=== PATIENT | female | born 1975 | race African-American/Black ===

== ENCOUNTER 2019-05-09 15:15 | Emergency (ER) | payer OTHER ==
[~2019-05-09] VITALS: Ht 175.3 cm; Wt 93.0 kg
[2019-05-09 15:34] VITALS: Ht 175.3 cm; Wt 93.0 kg
[2019-05-09 17:28] VITALS: BP 123/71
== END 2019-05-09 17:28 | disposition home or self-care (01) ==
LOC: ED 15:15
DX: J06.9 Acute upper respiratory infection, unspecified (principal); H10.89 Other conjunctivitis; Z88.8 Allergy status to other drugs, medicaments and biological substances